=== PATIENT | female | born 1940 | race Caucasian/White ===

== ENCOUNTER 2017-01-19 14:42 | Observation (INO) | payer OTHER, MEDICARE ==
[2017-01-19 15:11] VITALS: BMI 24.7
--- NOTE | 2017-01-19 15:28 | PDOC ---
History of Present Illness - General Chief Complaint: Syncope/Near Syncope Stated Complaint: SYNCOPE History Source: Patient, Family Exam Limitations: No Limitations - History of Present Illness Initial Comments: 01/19/17 15:15 Patient is a 76F with history of HTN and hypothyroidism here today complaining of syncope. She states that she was sitting down at a restaurant when she started feeling "sleepy" then passed out. Her daughter reports that she caught her mother and that the patient was unconscious for 2-3 minutes before coming to. There was no post-ictal period according to both the patient and daughter. The daughter reports that the patient was diaphoretic when coming to. The patient denies nausea, vomiting, fevers, chills, chest pain, cough and shortness of breath. EMS reports the patient was diaphoretic at the scene. Vital signs were stable. 12 lead EKG showed normal sinus rhythm, normal rate, normal axis, no st elevations/depressions or t wave inversions. Past History - Past Medical History Allergies/Adverse Reactions: Allergies Allergy/AdvReac Type Severity Reaction Status Date / Time No Known Allergies Allergy Verified 01/19/17 15:08 Home Medications: Ambulatory Orders Atorvastatin Ca [Lipitor] 10 mg PO HS 09/27/13 Levothyroxine [Synthroid -] 125 mcg PO DAILY 09/27/13 Liothyronine Sodium [Cytomel] 5 mcg PO BID 09/27/13 Metoprolol Succinate [Toprol Xl] 25 mg PO DAILY 09/27/13 Omeprazole [Prilosec] 20 mg PO DAILY 09/27/13 Anemia: No Asthma: No Cancer: No Cardiac Disorders: No CVA: Yes ([employer]) COPD: No CHF: No Dementia: No Diabetes: No GI Disorders: Yes (GERD) Disorders: No HTN: Yes Hypercholesterolemia: Yes Liver Disease: No Seizures: No Thyroid Disease: Yes - Surgical History Abdominal Surgery: No Appendectomy: No Cardiac Surgery: No Cholecystectomy: No Lung Surgery: No Neurologic Surgery: No Orthopedic Surgery: No - Suicide/Smoking/Psychosocial Hx Smoking History: Never smoked Have you smoked in the past 12 months: No Hx Alcohol Use: No Drug/Substance Use Hx: No Substance Use Type: None Hx Substance Use Treatment: No Review of Systems - Review of Systems Comments:: 01/19/17 15:18 GENERAL/CONSTITUTIONAL: No fever or chills. No weakness. HEAD, EYES, EARS, NOSE AND THROAT: No change in vision. No sore throat. CARDIOVASCULAR: No chest pain or shortness of breath RESPIRATORY: No cough, wheezing, or hemoptysis. GASTROINTESTINAL: No nausea, vomiting, diarrhea or constipation. GENITOURINARY: No dysuria, frequency, or change in urination. MUSCULOSKELETAL: No joint or muscle swelling or pain. No neck or back pain. SKIN: No rash NEUROLOGIC: No headache, vertigo, loss of consciousness, or change in strength/ sensation. ENDOCRINE: No increased thirst. No abnormal weight change HEMATOLOGIC/LYMPHATIC: No anemia, easy bleeding, or history of blood clots. ALLERGIC/IMMUNOLOGIC: No hives or skin allergy. *Physical Exam - Vital Signs Last Vital Signs Temp Pulse Resp BP Pulse Ox 98.1 F 89 20 124/74 99 01/19/17 15:08 01/19/17 15:08 01/19/17 15:08 01/19/17 15:08 01/19/17 15:08 - Physical Exam Comments: 01/19/17 15:34 GENERAL: Awake, alert, and fully oriented, in no acute distress HEAD: No signs of trauma, normocephalic, atraumatic EYES: PERRLA, EOMI, sclera anicteric, conjunctiva clear ENT: Auricles normal inspection, hearing grossly normal, nares patent, oropharynx clear without exudates. Moist mucosa NECK: Normal ROM, supple, no lymphadenopathy, JVD, or masses LUNGS: No distress, speaks full sentences, clear to auscultation bilaterally HEART: Regular rate and rhythm, normal S1 and S2, no murmurs, rubs or gallops, peripheral pulses normal and equal bilaterally. ABDOMEN: Soft, nontender, normoactive bowel sounds. No guarding, no rebound. No masses EXTREMITIES: Normal inspection, Normal range of motion, no edema. No clubbing or cyanosis. NEUROLOGICAL: Cranial nerves II through XII grossly intact. Normal speech, no focal sensorimotor deficits SKIN: Warm, Dry, normal turgor, no rashes or lesions noted. Heart Score/ECG Review - History History: Moderately suspicious - Electrocardiogram EKG: Normal - Age Age: >/= 65 - Risk Factors Risk Factors Heart Score: Yes Hx Hypertension Based on the list above the patient has:: 1-2 risk factors - Troponin Troponin: </= normal limit - Score Heart Score - Total: 4 ED Treatment Course - LABORATORY CBC & Chemistry Diagram: 01/19/17 15:10 01/19/17 15:10 - RADIOLOGY Radiology Studies Ordered: Category Date Time Status CHEST X-RAY PORTABLE* [RAD] Stat Radiology 01/19/17 15:08 Ordered Medical Decision Making - Medical Decision Making 01/19/17 15:37 76F with history of HTN and hypothyroidism here today complaining of syncope. Vital signs stable and normal. Syncope story is concerning, as it's not a clear vasovagal pattern. Will evaluate with heart workup. EKG shows normal sinus rhythm, normal rate, normal axis, no st elevations/ depressions, no t-wave inversion, normal QTc/VT/QRS intervals. 01/19/17 17:23 Laboratory Tests 01/19/17 01/19/17 01/19/17 15:10 15:10 15:10 WBC 5.7 Hgb 15.3 Hct 45.1 Plt Count 192 D INR 1.12 Troponin I < 0.02 CBC normal, INR normal, cmp reassuring, trop negative. 01/19/17 17:24 CXR shows large hiatal hernia, no acute cardiopulmonary process. 01/19/17 18:23 Patient discussed with KRISTIE Hargrove. Admitted to [facility] for moderate risk HEART score. *DC/Admit/Observation/Transfer Diagnosis at time of Disposition: Syncope - Discharge Dispostion Condition at time of disposition: Stable Admit: Yes - Referrals Referrals: Isha Keith [Primary Care Provider] - - Patient Instructions - Post Discharge Activity
[2017-01-19 15:44] LABS: BASOPHIL 0.6 % (0-2.0); EOSINOPHIL 0.9 % (0-4.5); MCH 31.1 pg (25.7-33.7); MEAN CELL VOLUME 91.6 fl (80-96); MEAN PLT VOLUME 8.3 fl (7.5-11.1); NEUTROPHILS 62.3 % (42.8-82.8); PLATELET COUNT 192 K/MM3 (134-434); RDW 13.3 % (11.6-15.6); WHITE BLOOD COUNT 5.7 K/mm3 (4.0-10.0)
[2017-01-19 16:03] LABS: INR 1.12 (0.82-1.09); PROTHROMBIN TIME (PATIENT) 12.6 SEC (9.98-11.88)
[2017-01-19 16:04] LABS: ALBUMIN 3.8 g/dl (3.4-5.0); ANION GAP 12 (8-16); BILIRUBIN,TOTAL 0.5 mg/dL (0.2-1.0); CALCIUM 8.9 mg/dL (8.5-10.1); CO2 24 mmol/L (21-32); CREATININE 0.8 mg/dL (0.55-1.02); GLUCOSE,RANDOM 134 mg/dL (74-106); MAGNESIUM 2.3 mg/dL (1.8-2.4); SGOT/AST 20 U/L (15-37); SGPT/ALT 27 U/L (12-78); TOT PROT 6.9 g/dl (6.4-8.2)
[2017-01-19 16:07] LABS: ALK PHOS 109 U/L (45-117); CPK 55 IU/L (26-192); TROPONIN I < 0.02 ng/ml (0.00-0.05)
--- NOTE | 2017-01-19 17:22 | PDOC ---
Attending Attestation - Resident Resident Name: Nguyễn Jung - ED Attending Attestation I have performed the following: I have examined & evaluated the patient, The case was reviewed & discussed with the resident, I agree w/resident's findings & plan, Exceptions are as noted - HPI HPI: 01/19/17 17:12 76 F with h/o HTN, hypothyroid presents to ER with syncopal episode. Pt states that she was seated at a table when she felt very fatigued. She denies feeling any CP/SOB/palpitations prior to fainting. Per witnesses, pt lost consciousness for about 2 minutes before returning to baseline. SHe denies any complaints currently other than feeling fatigued. Denies recent illness. Denies CHESTER/N/V. Denies weakness/numbness/tingling in any extremity. - Physicial Exam PE: 01/19/17 17:17 "GENERAL: Awake, alert, and fully oriented, in no acute distress HEAD: No signs of trauma EYES: PERRLA, EOMI, sclera anicteric, conjunctiva clear ENT: Auricles normal inspection, hearing grossly normal, nares patent, oropharynx clear without exudates. Moist mucosa NECK: Nontender, no stepoffs, Normal ROM, supple, no lymphadenopathy, JVD, or masses LUNGS: Breath sounds equal, clear to auscultation bilaterally. No wheezes, and no crackles HEART: Regular rate and rhythm, normal S1 and S2, no murmurs, rubs or gallops ABDOMEN: Soft, nontender, normoactive bowel sounds. No guarding, no rebound. No masses EXTREMITIES: Normal range of motion, no edema. No clubbing or cyanosis. No cords, erythema, or tenderness NEUROLOGICAL: Cranial nerves II through XII intact. 5/5 strength and sensation in all extremities, Normal speech, normal gait SKIN: Warm, Dry, normal turgor, no rashes or lesions noted. " - Medical Decision Making 01/19/17 17:17 76 F with syncopal episode while sitting. Pt HD stable with normal EKG. However , given syncopal episode while sitting, cardiac syncope cannot be ruled out. Pt with no evidence of PE on exam, normal vitals. Will also evaluate for infectious process. - Labs, trop - CXR, UA - Tele monitoring
[2017-01-19 18:22] LABS: URINE APPEARANCE CLOUDY; URINE BILIRUBIN NEGATIVE (NEGATIVE); URINE BLOOD NEGATIVE (NEGATIVE); URINE COLOR AMBER; URINE GLUCOSE (UA) NEGATIVE (NEGATIVE); URINE KETONE NEGATIVE (NEGATIVE); URINE NITRITE NEGATIVE (NEGATIVE); URINE PROTEIN NEGATIVE (NEGATIVE); URINE UROBILINOGEN NEGATIVE mg/dL (0.2-1.0)
--- NOTE | 2017-01-19 18:31 | HP ---
Admitting History and Physical - Admission Chief Complaint: syncope History of Present Illness: This is a 76 year old female with HTN, HLD, exercise induced asthma, previous admission with global amnesia, hypothroidism admitted with syncope. PT states, she went on a mile hike this AM, then she went to [facility] for her . After [facility] she went to [employer] had half a glass of sangria, and was in her usual state of health. All of a sudden she felt very tired as if she was going to fall asleep and next thing she remembers is waking up with her sisters holding her head. Her sisters reported she was diaphoretic and was down for 2-3 mins. The patient recovered consciousness right away, no post ictal. Pt denies CP, SOB, abd pain, fever, chills, nausea, vomiting. - Past Medical History Cardiovascular: Yes: HTN - Smoking History Smoking history: Never smoked Have you smoked in the past 12 months: No - Alcohol/Substance Use Hx Alcohol Use: No Home Medications - Allergies Allergies/Adverse Reactions: Allergies Allergy/AdvReac Type Severity Reaction Status Date / Time No Known Allergies Allergy Verified 01/19/17 15:08 - Home Medications Home Medications: Ambulatory Orders Atorvastatin Ca [Lipitor] 10 mg PO HS 09/27/13 Levothyroxine [Synthroid -] 125 mcg PO DAILY 09/27/13 Liothyronine Sodium [Cytomel] 5 mcg PO BID 09/27/13 Metoprolol Succinate [Toprol Xl] 25 mg PO DAILY 09/27/13 Omeprazole [Prilosec] 20 mg PO DAILY 09/27/13 Review of Systems - Review of Systems Constitutional: reports: Diaphoresis Eyes: reports: No Symptoms HENT: reports: No Symptoms Neck: reports: No Symptoms Cardiovascular: reports: No Symptoms Respiratory: reports: No Symptoms Gastrointestinal: reports: No Symptoms Genitourinary: reports: No Symptoms Musculoskeletal: reports: No Symptoms Integumentary: reports: No Symptoms Neurological: reports: Change in LOC Hematology/Lymphatic: reports: No Symptoms Psychiatric: reports: No Symptoms Physical Examination Vital Signs: Vital Signs Temperature 98.1 F 01/19/17 15:08 Pulse Rate 86 01/19/17 17:29 Respiratory Rate 20 01/19/17 17:29 Blood Pressure 127/77 01/19/17 17:29 O2 Sat by Pulse Oximetry (%) 100 11/12/17 17:29 Constitutional: Yes: No Distress Eyes: Yes: Conjunctiva Clear HENT: Yes: Atraumatic Neck: Yes: Supple Cardiovascular: Yes: Regular Rate and Rhythm, S1, S2 Respiratory: Yes: Regular, CTA Bilaterally Gastrointestinal: Yes: Normal Bowel Sounds, Soft Renal/: Yes: WNL Musculoskeletal: Yes: WNL Extremities: Yes: WNL Edema: No Neurological: Yes: Alert, Oriented, Cran Nerves II-XII Intact Psychiatric: Yes: Alert, Oriented Labs: CBC, BMP 01/19/17 15:10 01/19/17 15:10 Imaging - Results EKG: Report Reviewed ( 12 lead EKG showed normal sinus rhythm, normal rate, normal axis, no st elevations/depressions or t wave inversions.) Problem List - Problems (1) HTN (hypertension) Code(s): I10 - ESSENTIAL (PRIMARY) HYPERTENSION (2) Syncope Code(s): R55 - SYNCOPE AND COLLAPSE Assessment/Plan Assessment: 76 year old female with HTN, HLD, exercise induced asthma, previous admission with global amnesia, hypothyroidism admitted with syncope. Plan: 1. Syncope - Head CT - ECHO - Carotid dopplers - Telemetry monitoring - TSH, b 12, folic acid - UA negative - Neurology consult 2. HTN - Controlled - Toprol xl 25mg daily 3. Hypothyroid - Check TSH - Synthroid 125mcg - Cytomel 5mg BID 4. HLD - Lipitor 5. DVT - Heparin sq Visit type - Emergency Visit Emergency Visit: Yes Care time: The patient presented to the Emergency Department on the above date and was hospitalized for further evaluation of their emergent condition. - New Patient This patient is new to me today: Yes Date on this admission: 01/19/17 - Critical Care Critical Care patient: No
[2017-01-19 19:36] LABS: THYROID STIMULATING HORMONE < 0.01 uIU/ml (0.358-3.74)
[2017-01-19 22:02] LABS: URINE LEUK ESTERASE Negative (NEGATIVE)
[2017-01-19] MEDS ORDERED: HEPARIN NA (PORCINE) 5,000 UNITS/ML 1ML VIAL ONE (22:29)
[2017-01-19] MEDS: ATORVASTATIN CA 10 MG TABLET (FP) PO SCH (22:42)
[2017-01-19] MEDS: LIOTHYRONINE SODIUM 5 MCG TABLET PO SCH (22:42)
[2017-01-19] MEDS: HEPARIN NA (PORCINE) 5,000 UNITS/ML 1ML VIAL SQ SCH (22:42)
[2017-01-20] MEDS ORDERED: HEPARIN NA (PORCINE) 5,000 UNITS/ML 1ML VIAL ONE (06:23)
[2017-01-20] MEDS: HEPARIN NA (PORCINE) 5,000 UNITS/ML 1ML VIAL SQ SCH ×3 (06:34→21:53)
[2017-01-20] MEDS ORDERED: LEVOTHYROXINE NA 125 MCG TABLET (FP) PO SCH ×2 (07:00→10:57)
[2017-01-20 07:27] LABS: ALBUMIN 3.2 g/dl (3.4-5.0); ANION GAP 6 (8-16); CALCIUM 8.2 mg/dL (8.5-10.1); CO2 27 mmol/L (21-32); GLUCOSE,RANDOM 91 mg/dL (74-106)
[2017-01-20 07:30] LABS: ALK PHOS 89 U/L (45-117); BILIRUBIN,TOTAL 0.6 mg/dL (0.2-1.0); CREATININE 0.6 mg/dL (0.55-1.02); SGOT/AST 15 U/L (15-37); SGPT/ALT 22 U/L (12-78); TOT PROT 5.9 g/dl (6.4-8.2)
[2017-01-20] MEDS ORDERED: LEVOTHYROXINE NA 25 MCG TABLET (FP) ONE (08:49)
[2017-01-20] MEDS: LIOTHYRONINE SODIUM 5 MCG TABLET PO SCH ×2 (10:40→21:53)
[2017-01-20] MEDS: METOPROLOL SUCCINATE 25 MG TAB.SR.24H (FP) PO SCH (10:40)
--- NOTE | 2017-01-20 11:00 | PN ---
Physical Exam: SUBJECTIVE: Patient seen and examined. No active issues, she denies palpitations , CHESTER, dizziness, she was going to leave AMA, she has decided to stay OBJECTIVE: Vital Signs Period Temp Pulse Resp BP Sys/Abarca Pulse Ox Last 24 Hr 97.6 F-98.1 F 70-89 16-20 116-136/60-89 97-100 PE Neuro: alert, awake, cn 2-12intact Pulm: CTAB CV: s1 s2 rrr no mrg Abd: s nt nd + bs Ext: Warm, no le edema Laboratory Results - last 24 hr 01/19/17 01/19/17 01/20/17 15:15 17:50 06:10 WBC RBC Hgb Hct MCV MCH MCHC RDW Plt Count MPV Neutrophils % Lymphocytes % Monocytes % Eosinophils % Basophils % PT with INR INR Sodium 142 Potassium 3.7 Chloride 109 H Carbon Dioxide 27 Anion Gap 6 L BUN 18 Creatinine 0.6 D Creat Clearance w eGFR > 60 Random Glucose 91 D Calcium 8.2 L Magnesium Total Bilirubin 0.6 AST 15 D ALT 22 Alkaline Phosphatase 89 Creatine Kinase Troponin I Total Protein 5.9 L Albumin 3.2 L Vitamin B12 4013 H Serum Folate 91 H TSH < 0.01 L Urine Color Macy Urine Appearance Cloudy Urine pH 5.0 Ur Specific [place] 1.027 Urine Protein Negative Urine Glucose (UA) Negative Urine Ketones Negative Urine Blood Negative Urine Nitrite Negative Urine Bilirubin Negative Urine Urobilinogen Negative Ur Leukocyte Esterase Negative Active Medications Generic Name Dose Route Start Last Admin Trade Name Freq PRN Reason Stop Dose Admin Atorvastatin Calcium 10 mg 01/19/17 22:00 01/19/17 22:42 Lipitor - PO 10 mg HS FEMI Administration Heparin Sodium (Porcine) 5,000 unit 01/19/17 22:00 01/20/17 06:34 Heparin - SQ 5,000 unit TID FEMI Administration Levothyroxine Sodium 112.5 mcg 01/20/17 10:57 Synthroid - PO DAILY@0700 FEMI Liothyronine Sodium 5 mcg 01/19/17 22:00 01/20/17 10:40 Cytomel - PO Not Given BID FEMI Metoprolol Succinate 25 mg 01/20/17 10:00 01/20/17 10:40 Toprol Xl - PO Not Given DAILY FEMI Imaging: - Head CT negative - Carotid dopplers: no stenosis Assessment: 76 year old female with HTN, HLD, exercise induced asthma, previous admission with global amnesia, hypothyroidism admitted with syncope. Plan: 1. Syncope, hx of TGA - Likely due to over treated hypothyriod (TSH severely low) vs cardiogenic syncope - ECHO done report pending - Place holter monitor - Cardiology consulted, pt PCP/Executor Of Estate Dr. Keith, states cardiac cath 2009 negative, recent physical 12/10/16 wnl 2. HTN - Controlled - Toprol xl 25mg daily 3. Hypothyroid - TSH <0.01 - Decrease synthroid 112.5mcg - D/w PCP Dr. Keith, will follow up cytomel - Change Cytomel 5mg daily, pt does not take BID 4. HLD - Lipitor 5. DVT - Heparin sq Problem List - Problems (1) HTN (hypertension) Code(s): I10 - ESSENTIAL (PRIMARY) HYPERTENSION (2) Syncope Code(s): R55 - SYNCOPE AND COLLAPSE Visit type - Emergency Visit Emergency Visit: Yes ED Registration Date: 01/19/17 Care time: The patient presented to the Emergency Department on the above date and was hospitalized for further evaluation of their emergent condition. - New Patient This patient is new to me today: No - Critical Care Critical Care patient: No
--- NOTE | 2017-01-20 17:33 | EKG ---
Test Reason : Blood Pressure : / mmHG Vent. Rate : 084 BPM Atrial Rate : 084 BPM P-R Int : 148 ms QRS Dur : 092 ms QT Int : 388 ms P-R-T Axes : 012 -02 -10 degrees QTc Int : 458 ms NORMAL SINUS RHYTHM NORMAL ECG WHEN COMPARED WITH ECG OF 27-SEP-2013 16:00, NO SIGNIFICANT CHANGE WAS FOUND Confirmed by SLY CHINCHILLA MD ([id number]) on 01/20/2017 5:32:37 PM Referred By: Confirmed By:SLY CHINCHILLA MD
--- NOTE | 2017-01-20 18:22 | CON.CARD ---
Consult Consult Specialty:: Cardiology Referred by:: Hospitalist Reason for Consultation:: Cardiac evaluation - History of Present Illness Chief Complaint: Syncope History of Present Illness: Patient is a 76 year old female with underlying history of hypertension, bronchial asthma, hypercholesterolemia, global amnesia and hypothyroidism who presented to ED after a syncopal episode. She was previously seem by me for cardiac evaluation but since then she has been followed by her PCP who happens to be practicing cardiology as well. She attended a memorial service for her and was having lunch a a local restaurant when she had a syncopal episode. She drank half of sangria and had a little cough prior to the event. She denies chest pain, shortness of breath or palpitations. She denies paroxysmal nocturnal dyspnea or orthopnea. She denies fever or chills. She denies headache or lightheadedness. She reports no focal neurologic deficits. Cardiology consultation was called for further evaluation. - History Source History Provided By: Patient, Medical Record Limitations to Obtaining History: No Limitations - Past Medical History [employer]IST: Yes: Other (Global amnesia) Cardio/Vascular: Yes: HTN, Hyperlipdemia Pulmonary: Yes: Asthma Endocrine: Yes: Hypothyroidism (Post thyroidectomy) - Past Surgical History Additional Surgical History: Thyroidectomy - Alcohol/Substance Use Hx Alcohol Use: Yes (Social) History of Substance Use: reports: None - Smoking History Smoking history: Never smoked Have you smoked in the past 12 months: No Home Medications - Allergies Allergies/Adverse Reactions: Allergies Allergy/AdvReac Type Severity Reaction Status Date / Time No Known Allergies Allergy Verified 01/19/17 15:08 - Home Medications Home Medications: Ambulatory Orders RX: Atorvastatin Ca [Lipitor] 10 mg PO HS 09/27/13 RX: Levothyroxine [Synthroid -] 125 mcg PO DAILY 09/27/13 RX: Liothyronine Sodium [Cytomel] 5 mcg PO DAILY 09/27/13 RX: Metoprolol Succinate [Toprol Xl] 25 mg PO DAILY 09/27/13 RX: Omeprazole [Prilosec] 20 mg PO DAILY 09/27/13 Family Disease History - Family Disease History Other Family History: History of vasovagal syncope (Mother) Review of Systems - Review of Systems Constitutional: denies: Chills, Fever Cardiovascular: denies: Chest Pain, Palpitations, Shortness of Breath Respiratory: reports: Cough. denies: Hemoptysis, Orthopnea, PND, SOB, SOB on Exertion Gastrointestinal: denies: Abdominal Pain, Constipation, Diarrhea, Melena, Nausea , Rectal Bleeding, Vomiting Genitourinary: denies: Dysuria Musculoskeletal: denies: Back Pain, Joint Pain Neurological: reports: Syncope. denies: Dizziness, Headache, Numbness, Seizure , Unsteady Gait, Weakness Vital Signs: Vital Signs Temperature 98.4 F 01/20/17 16:30 Pulse Rate 71 01/20/17 16:30 Respiratory Rate 18 01/20/17 16:30 Blood Pressure 144/86 01/20/17 16:30 O2 Sat by Pulse Oximetry (%) 98 01/20/17 16:30 Neck: Yes: Supple Respiratory: Yes: CTA Bilaterally Gastrointestinal: Yes: Normal Bowel Sounds, Soft. No: Tenderness Cardiovascular: Yes: Regular Rate and Rhythm JVD: No Carotid Bruit: No PMI: Non-Displaced Heart Sounds: Yes: S1, S2 Edema: No - Other Data Labs, Other Data: CBC, BMP 01/19/17 15:10 01/20/17 06:10 INR, PTT INR 1.12 (0.82-1.09) 01/19/17 15:10 Laboratory Results - last 24 hr 01/20/17 06:10 Sodium 142 Potassium 3.7 Chloride 109 H Carbon Dioxide 27 Anion Gap 6 L BUN 18 Creatinine 0.6 D Creat Clearance w eGFR > 60 Random Glucose 91 D Calcium 8.2 L Total Bilirubin 0.6 AST 15 D ALT 22 Alkaline Phosphatase 89 Total Protein 5.9 L Albumin 3.2 L Sin[address] rhythm no ST-T abnormality Echo: Pending Problem List - Problems (1) Hypercholesterolemia Code(s): E78.00 - PURE HYPERCHOLESTEROLEMIA, UNSPECIFIED (2) Bronchial asthma Code(s): J45.909 - UNSPECIFIED ASTHMA, UNCOMPLICATED (3) Hypothyroidism Code(s): E03.9 - HYPOTHYROIDISM, UNSPECIFIED (4) HTN (hypertension) Code(s): I10 - ESSENTIAL (PRIMARY) HYPERTENSION Qualifiers: Hypertension type: essential hypertension Qualified Code(s): I10 - Essential (primary) hypertension (5) Syncope Code(s): R55 - SYNCOPE AND COLLAPSE Qualifiers: Syncope type: vasovagal syncope Qualified Code(s): R55 - Syncope and collapse (6) Transient global amnesia Code(s): G45.4 - TRANSIENT GLOBAL AMNESIA Assessment/Plan 1. Syncope, vasovagal, dehydration 2. HTN 3. History of global amnesia 4. Hypercholesterolemia 5. Hypothyroidism 6. Bronchial asthma PLAN: 1. Currently on Holter monitor. Admit to telemetry 2. Transthoracic echocardiography to assess LV/RV and valvular function 3. Continue Metoprolol as tolerated 4. Continue Synthroid at appropriate dose determined by TFT 5. Continue statin Further plans are to follow Moo Philippe MD
--- NOTE | 2017-01-20 19:44 | CONSULT ---
Consultation: REQUESTING PROVIDER: CONSULT SERVICE: Cardiology CONSULT REQUEST: We have been asked to medically evaluate this patient for syncope. HISTORY OF PRESENT ILLNESS: 76 yo female w/ pmh of HTN, HLD, asthma, global amnesia and hypothyroidism who presents after witnessed syncopal episode yesterday during lunch with her sisters. Pt lives at home, fully functional in all ADLs, with unlimited ambulatory capacity. Pt was in her usual state of health while attending a memorial service for her yesterday and following the service went to eat at a restaurant w/ her sisters. After consuming half a sangria, she endorses the onset of fatigue and states she experienced a coughing fit before losing consciousness. Pts sisters were able to catch her and she experienced no significant physical trauma from the event. Per her sister, pt was unconscious for 2-3 minutes, notably diaphoretic, with no myoclonus. She was fully alert upon regaining consciousness w/ no post-ictal symptoms. Prior to LOC, pt denies any CP, palpitations, vertigo, dizziness, lightheadness, nausea, peripheral weakness, myoclonus or aura. She endorses poor PO hydration that morning and states she had been emotional from the memorial service for her . She denies any CHESTER/dizziness, fever, chills, cough, CP, SOB, palpitations, N/V, dysuria, diarrhea, peripheral weakness, or focal neurologic deficits. Pt has a prior pmh significant for two episodes of transient global amnesia, the first occurring in Apr 2009, for which she received a full cardiac work-up. However, she denies any hx of cardiac or neurological dz. Family hx significant for mother w/ vasovagal syncope. Her PCP/visiting nurse is Dr. Keith at [facility]. PMH: Global Amnesia HTN HLD Hypothyroidism - Takes synthroid. Recently increased from 100 to 125 mcg Exercise-induced asthma Hiatal Hernia - Currently taking PPI PSH: Thyroidectomy RHC/LHC? 2010 Allergies: NKDA Social Hx: . Lives at home. Independent in all ADLs. Social drinke Fam Hx: Notable for mother w/ vasovagal syncope REVIEW OF SYSTEMS: CONSTITUTIONAL: Diaphoresis Absent: fever, chills, generalized weakness HEENT: Absent: rhinorrhea, nasal congestion, throat pain, visual changes CARDIOVASCULAR: syncope Absent: chest pain, palpitations, irregular heart rate, lightheadedness, peripheral edema RESPIRATORY: cough Absent: shortness of breath, dyspnea with exertion, orthopnea, hemoptysis GASTROINTESTINAL: Absent: abdominal pain, abdominal distension, nausea, vomiting, diarrhea, constipation, melena, hematochezia GENITOURINARY: Absent: dysuria, frequency, urgency SKIN: Absent: rash, itching ENDOCRINE: Absent: unexplained weight gain, unexplained weight loss, heat intolerance, cold intolerance NEUROLOGIC: Absent: headache, focal weakness or paresthesias, dizziness, unsteady gait, seizure, mental status changes, bladder or bowel incontinence PSYCHIATRIC: Absent: anxiety, depression PHYSICAL EXAMINATION Vital Signs - 24 hr 01/19/17 01/19/17 01/20/17 20:45 23:48 06:33 Temperature 97.6 F Pulse Rate Pulse Rate [ Apical] Pulse Rate [ 78 76 72 Radial] Respiratory 20 16 18 Rate Blood Pressure Blood Pressure 117/78 116/60 135/89 [Right Arm] O2 Sat by Pulse 97 99 99 Oximetry (%) 01/20/17 01/20/17 01/20/17 08:45 10:45 14:57 Temperature 98.0 F 98.7 F Pulse Rate 61 Pulse Rate [ 70 68 Apical] Pulse Rate [ Radial] Respiratory 18 18 18 Rate Blood Pressure 145/78 Blood Pressure 136/74 128/76 [Right Arm] O2 Sat by Pulse 99 95 99 Oximetry (%) 01/20/17 16:30 Temperature 98.4 F Pulse Rate 71 Pulse Rate [ Apical] Pulse Rate [ Radial] Respiratory 18 Rate Blood Pressure 144/86 Blood Pressure [Right Arm] O2 Sat by Pulse 98 Oximetry (%) GENERAL: Awake, alert, and fully oriented, in no acute distress. HEAD: Normal with no signs of trauma. NCAT EYES: Pupils equal, round and reactive to light, extraocular movements intact, sclera anicteric, conjunctiva clear. No lid lag. EARS, NOSE, THROAT: Ears normal, nares patent, oropharynx clear without exudates. Moist mucous membranes. NECK: Normal range of motion, supple without lymphadenopathy, JVD, or masses. Carotid upstroke noted BL. LUNGS: Breath sounds equal, clear to auscultation bilaterally. No wheezes, and no crackles. No accessory muscle use. Sebaceous cyst noted on back, located midline/upper third HEART: Regular rate and rhythm, normal S1 and S2 without murmur, rub or gallop. ABDOMEN: Soft, nontender, not distended, normoactive bowel sounds, no guarding, no rebound, no masses. No hepatomegaly or splenomegaly. No bruit noted. UPPER EXTREMITIES: 2+ pulses, warm, well-perfused. No cyanosis. No clubbing. Cap refill <2 seconds. No peripheral edema. LOWER EXTREMITIES: 2+ pulses, warm, well-perfused. No calf tenderness. No peripheral edema. NEUROLOGICAL: Cranial nerves II-XII intact. Normal speech. Normal gait. 5/5 strength in all extremities/muscle groups. No sensory deficits. PSYCHIATRIC: Cooperative. Good eye contact. Appropriate mood and affect. SKIN: Warm, dry, normal turgor, no rashes or lesions noted. Laboratory Results - last 24 hr 01/19/17 01/19/17 01/20/17 15:15 17:50 06:10 Sodium 142 Potassium 3.7 Chloride 109 H Carbon Dioxide 27 Anion Gap 6 L BUN 18 Creatinine 0.6 D Creat Clearance w eGFR > 60 Random Glucose 91 D Calcium 8.2 L Total Bilirubin 0.6 AST 15 D ALT 22 Alkaline Phosphatase 89 Total Protein 5.9 L Albumin 3.2 L Vitamin B12 4013 H Serum Folate 91 H TSH < 0.01 L Ur Leukocyte Esterase Negative Active Medications Generic Name Dose Route Start Last Admin Trade Name Freq PRN Reason Stop Dose Admin Atorvastatin Calcium 10 mg 01/19/17 22:00 01/19/17 22:42 Lipitor - PO 10 mg HS FEMI Administration Heparin Sodium (Porcine) 5,000 unit 01/19/17 22:00 01/20/17 15:44 Heparin - SQ 5,000 unit TID FEMI Administration Levothyroxine Sodium 112.5 mcg 01/20/17 10:57 Synthroid - PO DAILY@0700 [facility] Liothyronine Sodium 5 mcg 01/19/17 22:00 01/20/17 10:40 Cytomel - PO Not Given BID [facility] Metoprolol Succinate 25 mg 01/20/17 10:00 01/20/17 10:40 Toprol Xl - PO Not Given DAILY [facility] EKG 01/19: NSR. Rate ~80. No QT prolongation. No evidence of acute ischemia or infarct. No BBB or heart block. No T wave abnormalities. CXR 01/19: No evidence of airspace consolidation or pleural effusion. Mild bibasilar linear scarring versus atelectasis. Large hiatal hernia. Carotid Doppler (01/19): IMPRESSION: Normal carotid sonogram with no evidence of hemodynamically significant stenoses. ECHO 01/20: Normal LV size and function. EF of 69%. Moderate MR, TR. Mild pulmonic regurgitation. No pericardial effusion. ASSESSMENT/PLAN: Assessment: 76 yo female w/ pmh of HTN, HLD, asthma, global amnesia and hypothyroidism who presents after witnessed syncopal episode yesterday during lunch with her sisters. Pt has since been asymptomatic and denies any cardiac or neurologic symptoms. Physical exam unremarkable. Labs notable for markedly low TSH (0.01>) , normal cardiac enzymes. Unremarkable EKG, CXR, carotid doppler. ECHO notable for grossly normal LV function, moderate MR/TR. Given clinical picture, pt likely suffering from vasovagal syncope in setting of paroxysmal coughing fit, likely precipitated by dehydration/emotional stress/possible excessive dosing of home synthroid. Recommend continued holter monitoring to r/o possible arrhythmia, however less likely to be cardiogenic given clinical hx and imaging findings. Plan: Problem list Syncopal episode HTN HLD 1. 48-hour holter monitoring for possible arrhythmias/cardiac events. 2. Continue home metoprolol at 25mg daily for HTN. Continue atorvastatin 10 mg PO HS. 3. Decrease synthroid to 100 mcg. Recheck TSH. F/u w/ outpt hand almond blancher for further dosage adjustments. 4. IVFs. Monitor volume status. 5. F/u neurology consult 6. Consider psych consult for possible psychiatric component 7. Orthostatics 8. May require cardiac cath for further cardiac work-up Will discuss plan with attending, Dr. Denae Park, PGY1 Dispo: We will continue to follow the patient. Thank you for this consultative opportunity. Visit type - Emergency Visit Emergency Visit: Yes ED Registration Date: 01/19/17 Care time: The patient presented to the Emergency Department on the above date and was hospitalized for further evaluation of their emergent condition. - New Patient This patient is new to me today: Yes Date on this admission: 01/20/17 - Critical Care Critical Care patient: No
--- NOTE | 2017-01-20 20:49 | CONSULT ---
Consult - text type - Consultation Consultation Note: NEUROLOGY CONSULTATION is greatly appreciated: This 76 yo RH woman with H/O Hypothyroidism, hypertension, Chol. is maintained on Synthroid, Cytomel, atdorvastatin, metoprolol and omeprazole. Known to me from prior presentation with transient memory loss c/w Transient Global Amnesia (TGA) about 4 years ago. Yesterday she had lunch with her family and had a Sangria. She then felt fatigued, weak, dizzy and passed out on the table. She came to within 2-3 minutes and was rapidly reoriented. Family noted diaphoresis. In ER, CT of head (reviewed): Mild age-related atrophy Carotid duplex dopplers: Normal Dr. Philippe's cardiology consultation is read and appreciated. TSH <0.01 JANEL: No head trauma. No bruits. Cor: Reg. NEURO: MS/speech: Normal CN II-XII: Normal Motor: No drift or tremor. Normal strength, tone, bulk and reflexes. Toes are downgoing Coord: No FTN Dystaxia Sensory: Normal Gait: Normal IMP: Normal Neurological exam. Syncope. Vasovagal vs. Cardiogenic. SUGGEST: Telemetry and/or Halter monitor Check orthostatic BP's. Endocrinology consultation. Neuro f/u and EEG as out patient. Thank you very much, Lionel Hood MD
[2017-01-20] MEDS: ATORVASTATIN CA 10 MG TABLET (FP) PO SCH (21:57)
[2017-01-21] MEDS: HEPARIN NA (PORCINE) 5,000 UNITS/ML 1ML VIAL SQ SCH (06:34)
--- NOTE | 2017-01-21 07:57 | PN ---
Progress Note (short form) - Note Progress Note: Chief Complaint: Events noted, notes reviewed, denies any chest pain or dyspnea , no dizziness History of Present Illness: Seen and examined on telemetry. Events noted, notes reviewed, denies any chest pain or dyspnea, no dizziness Echocardiography revealed normal LV size and function, mild to moderate MR, mild TR Carotid Doppler study normal Medications: Current Medications Atorvastatin Calcium (Lipitor -) 10 mg PO HS [facility] Last Admin: 01/20/17 21:57 Dose: Not Given Heparin Sodium (Porcine) (Heparin -) 5,000 unit SQ TID [facility] Last Admin: 01/21/17 06:34 Dose: 5,000 unit Levothyroxine Sodium (Synthroid -) 112.5 mcg PO DAILY@0700 [facility] Last Admin: 01/21/17 06:34 Dose: 112.5 mcg Liothyronine Sodium (Cytomel -) 5 mcg PO BID [facility] Last Admin: 01/20/17 21:53 Dose: 5 mcg Metoprolol Succinate (Toprol Xl -) 25 mg PO DAILY [facility] Last Admin: 01/20/17 10:40 Dose: Not Given Review of Systems - Review of Systems Constitutional: denies: Chills, Fever Cardiovascular: As noted above Respiratory: denies: Cough or Sputum Production Gastrointestinal: denies: Nausea, Vomiting, Diarrhea, Constipation or Abdominal Discomfort Neurological: No Symptoms Reported Vital Signs: Last Vital Signs Temp Pulse Resp BP Pulse Ox 98.2 F 64 20 113/53 96 01/21/17 06:08 01/21/17 06:08 01/21/17 06:08 01/21/17 06:08 01/21/17 00:00 Intake & Output 01/18/17 01/19/17 01/20/17 01/21/17 23:59 23:59 23:59 23:59 Intake Total 240 Balance 240 Weight 129 lb 129 lb Neck: Supple Negative JVD No Bruit Respiratory: Clear to A&P Bilaterally Cardiovascular: S1 S2 Regular Rate and Rhythm No Murmurs Clicks or Gallops Gastrointestinal: Soft Benign Normal Bowel Sounds Ext: No Edema Labs: CBC, BMP 01/19/17 15:10 01/20/17 06:10 INR, PTT INR 1.12 (0.82-1.09) 01/19/17 15:10 Assessment/Plan ASSESSMENT: 1. Syncope, probably vaso-vagal precipitated by dehydration, cannot exclude neuro-cardiogenic syncope, vaso-depressor/cardio-inhibitory 2. HTN 3. Hypercholesterolemia 4. History of transient global amnesia 5. Hypothyroidism 6. Bronchial asthma PLAN: 1. Long discussion with the patient regarding her presentation which as outlined above is most likely vaso-vagal in origin, if recurrent symptoms additional evaluation is recommended including Tilt table testing and possible extended monitoring 2. Continue Toprol XL 3. Continue Lipitor 4. Continue ASA 5. 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 Marc Khan M.D.
--- NOTE | 2017-01-21 09:19 | DS ---
Physical Exam: SUBJECTIVE: Patient seen and examined. She feels well, no further syncopal episodes, dizziness, CHESTER. OBJECTIVE: Vital Signs Period Temp Pulse Resp BP Sys/Abarca Pulse Ox Last 24 Hr 98.2 F-98.7 F 61-71 18-20 113-145/53-86 95-99 PE Neuro: alert, awake, cn 2-12intact Pulm: CTAB CV: s1 s2 rrr no mrg Abd: s nt nd + bs Ext: Warm, no le edema HOSPITAL COURSE: Date of Admission:01/19/17 Date of Discharge: 01/21/17 Minutes to complete discharge: 37 Discharge Summary Reason For Visit: SYNCOPE Current Active Problems Bronchial asthma (Acute) HTN (hypertension) (Acute) Hypercholesterolemia (Acute) Hypothyroidism (Acute) Syncope (Acute) Hospital Course: Initial Hospital Course: Briefly, this 76 year old female with HTN, HLD, exercise induced asthma, previous admission with global amnesia, hypothroidism admitted with syncope. She went on a mile hike this AM, then she went to [employer] for her anniversary 7 years passed. After [facility] she went to [employer] had half a glass of sangria, and was in her usual state of health. All of a sudden she felt very tired as if she was going to fall asleep and next thing she remembers is waking up with her sisters holding her head. Her sisters reported she was diaphoretic and was down for 2-3 mins. The patient recovered consciousness right away, no post ictal. Pt denies CP, SOB, abd pain, fever, chills, nausea, vomiting. Imaging: - Head CT negative - Carotid dopplers: no stenosis Subsequent Hospital Course/Progress Note/DC summary: Assessment: 76 year old female with HTN, HLD, exercise induced asthma, previous admission with global amnesia, hypothyroidism admitted with syncope. Plan: 1. Syncope, hx of TGA - Likely due to over treated hypothyriod (TSH severely low) vs vaso-vagal vs neuro cardiogenic - Echo: normal LV size and function, mild to moderate MR, mild TR - Holter monitor no acute arrhythmias - If symptoms persist in future will need tilt table/extended monitor, pt aware - F/u PCP/Position Classification Manager Dr. Keith 2. HTN - Controlled - ASA daily - Toprol xl 25mg daily 3. Hypothyroid - TSH <0.01 - Decrease synthroid 112 mcg - Change Cytomel 5mg daily, d/w PCP, to adjust dose based on levels 4. HLD - Lipitor Dispo: - Home with PCP follow up and listed meds above Condition: Stable - Instructions Diet, Activity, Other Instructions: Please return to the ED for any new, persistent, or worsening symptoms. Follow up with your PCP in 1 week Note decreased dose in Synthroid, now 112.5mcg, followup with Dr. Keith for repeat levels and further recommendation for cytomel, she is aware Take medications as directed on home discharge medication list If symptoms persist consider tilt table test or extended monitoring wit Dr. Keith Referrals: Isha Keith [Primary Care Provider] - Disposition: HOME - Home Medications Comprehensive Discharge Medication List: Ambulatory Orders Atorvastatin Ca [Lipitor] 10 mg PO HS 09/27/13 Liothyronine Sodium [Cytomel] 5 mcg PO DAILY 09/27/13 Metoprolol Succinate [Toprol Xl] 25 mg PO DAILY 09/27/13 Omeprazole [Prilosec] 20 mg PO DAILY 09/27/13 Aspirin [ASA -] 81 mg PO DAILY #30 tab.chew 01/21/17 Levothyroxine [Synthroid -] 112.5 mcg PO DAILY@0700 #30 tablet 01/21/17 Problem List - Problems (1) HTN (hypertension) Code(s): I10 - ESSENTIAL (PRIMARY) HYPERTENSION Qualifiers: Hypertension type: essential hypertension Qualified Code(s): I10 - Essential (primary) hypertension (2) Syncope Code(s): R55 - SYNCOPE AND COLLAPSE Qualifiers: Syncope type: vasovagal syncope Qualified Code(s): R55 - Syncope and collapse This patient is new to me today: No Emergency Visit: Yes ED Registration Date: 01/19/17 Care time: The patient presented to the Emergency Department on the above date and was hospitalized for further evaluation of their emergent condition. Critical Care patient: No - Discharge Referral Referred to [facility] No
[2017-01-21] MEDS: METOPROLOL SUCCINATE 25 MG TAB.SR.24H (FP) PO SCH (09:44)
[2017-01-21 10:17] VITALS: BP 132/53; PULSE 60; TEMP 98.3
[2017-01-21] MEDS ORDERED: LIOTHYRONINE SODIUM 5 MCG TABLET PO SCH (22:00)
--- NOTE | 2017-01-22 09:12 | HOL ---
Hook-up date: 2017-01-20 13:34:00 Duration: 21:26:00 Test Indications: CARDIOGENIC SYNCOPE Medications: 73450 QRS complexes 79 Ventricular ectopics which represent <1 % of total QRS comp. 54 Supraventricular ectopics which represent <1 % of total QRS comp. * Paced QRS complexs which represent % of total QRS comp. * % of Time Classified as Noise VENTRICULAR ECTOPY 77 Isolated 15 Bigeminal Cycles 1 Couplets 0 Runs 0 Beats in Runs * Beats LONGEST at * BPM at :: -- * Beats FASTEST at * BPM at :: -- SUPRAVENTRICULAR ECTOPY 43 Isolated 3 Couplets 1 Runs 5 Beats in Runs 5 Beats LONGEST at 142 BPM at 16:30:01 2017-01-20 5 Beats FASTEST at 142 BPM at 16:30:01 2017-01-20 HEART RATES 47 MIN at 06:40:05 2017-01-21 68 AVG 98 MAX at 19:15:35 2017-01-20 LONGEST RR 1.568 secs at 06:42:44 2017-01-21 SCANNED BY: EFRAIN 01/21/17 1. Basic rhythm was sinus with an average daily heart rate of 68 BPM. Rhythm was interrupted by sinus bradycardia. Rates varied from 47 to 98 BPM. 2. Rare single VPB's, rarely successive. mostly unifocal. 3. Rare SPB's at times successive and short run of SVT consisting of 5 beats in a row at 16:[address]-T waves did not reveal any significant variations. 5 No diary was submitted. Confirmed by SHEIKH SARAH, VENKAT ([id number]), health editor SAMUEL RAGSDALE (1) on 01/22/2017 9:12:13 AM Referred By: Trevon LUNA Overread By: VENKAT VERMA MD
== END 2017-01-21 11:34 | disposition home or self-care (01) ==
LOC: JER 14:42 → JERBED 18:14 → J4W 01-20 16:21
PROVIDERS: ADMIT Internal Medicine; ATTEND Nurse Practitioner Acute Care
PROC: 3E013GC Introduction of Other Therapeutic Substance into Subcutaneous Tissue, Percutaneous Approach (ICD-10-PCS; principal; 2017-01-19)
DX: R55 Syncope and collapse (principal); I10 Essential (primary) hypertension; E78.5 Hyperlipidemia, unspecified; E89.0 Postprocedural hypothyroidism; K21.9 Gastro-esophageal reflux disease without esophagitis; J45.909 Unspecified asthma, uncomplicated; G45.4 Transient global amnesia
CPT/HCPCS: 36415; 70450-TC; 71010-TC; 80053; 81003; 82550; 82607; 82746; 83735; 84443; 84484; 85025; 85610; 87086; 93005; 93010; 93225; 93226; 93306-TC; 93880-TC; 96372; 99285-25; G0378; J1644

== ENCOUNTER 2018-02-12 07:00 | Day surgery (SDC) | payer OTHER, MEDICARE ==
[2018-02-10 18:55] VITALS: BMI 24.3
--- NOTE | 2018-02-11 16:05 | HP ---
- Patient Scheduled date of Surgery: 02/12/18 Scheduled Surgical Procedure: Phacoemulsification and cataract extraction with PCIOL Affected Eye: Right Chief Complaint (Indication for surgery): Decreased vision affecting ADLs, Glare when driving at night - Ocular History Other Eye History: Other (ROCHELLE, Choroidal nevus, PVD OD) Eye Medications: Vigamox , AT Previous Eye Surgery: none - Medical History Illnesses: Hypertension, Hypercholesterolemia, Thyroid Disease Current Medications: Ambulatory Orders Atorvastatin Ca [Lipitor] 10 mg PO ASDIR 09/27/13 Liothyronine Sodium [Cytomel] 5 mcg PO DAILY 09/27/13 Metoprolol Succinate [Toprol Xl] 25 mg PO DAILY 09/27/13 Omeprazole [Prilosec] 20 mg PO DAILY 09/27/13 Aspirin [ASA -] 81 mg PO DAILY #30 tab.chew 01/21/17 Levothyroxine [Synthroid -] 112 mcg PO DAILY #30 tablet 01/21/17 Ascorbic Acid [Vitamin C] 1,000 mg PO DAILY 02/10/18 Calcium Carb/D3/Magnesium/Zinc [Lev Mag Zinc + D Tablet] 1 each PO DAILY Cholecalciferol (Vitamin D3) [Vitamin D3 -] 2,000 unit PO DAILY 02/10/18 Folic Acid 1 mg PO DAILY 02/10/18 Glucosamine Sulfate Dipot Chlr [Glucosamine] 1,500 mg PO DAILY 02/10/18 Iron 65 mg PO DAILY 02/10/18 Lutein 2 mg PO DAILY 02/10/18 Mv-Min/FA/Vit K/Lycop/Lut/Zeax [Ocuvite Eye + Multi Tablet] 1 each PO DAILY 06/25 Ubidecarenone/Vit E Acet [Co Q-10 100 mg Softgel] 1 each PO DAILY 02/10/18 Vitamin B Complex/Folic Acid [Vitamin B-100 Complex Tablet] 0.4 mg PO DAILY 06/25 Allergies/Adverse Reactions: Allergies Allergy/AdvReac Type Severity Reaction Status Date / Time No Known Allergies Allergy Verified 01/19/17 15:08 Ocular Examination - Best Corrected Visual Acuity Distance: Right eye: 20/60- Distance: Left eye: 20/30 - External/Slit Lamp Examination Abnormalities: loss of pupillary ruff - Intraocular Pressure Intraocular Pressure - Right eye: 12 Intraocular Pressure-Left eye: 12 - Lens Lens: 2+ NS 2+ cortical 2+ psc - Vitreous/Retina Vitreous/Retina: C:D 0.2 , faint choroidal nevus 1/2 dd, p/v wnl - Special Examination M - Right eye: -2.25- 1.00 x 085 M - Left eye: -2.00 K - Right eye: 46/47 x 090 K - Left eye: 46.25/47.25 x 095 AL - Right eye: 23.86 AL - Left eye: 23.56 IOL bag: +19.0 AUOOTO for myopia IOL sulcus: +18.0 AUOOTO IOL AC: +16.0 MTA4uo - Impression Impression: Cataract Right Eye - Plan Plan: Phacoemulsification and cataract extraction - IOL Right eye Post-hospital care will be provided in office on: 02/13/18
[~2018-02-12 07:00] MED LIST: CIPROFLOXACIN HCL 0.3% OPHTH 2.5ML BOTTLE OP SCH; KETOROLAC TROMETHAMINE 0.5% EYE DROP 1 DROP DROPS OP SCH; PHENYLEPHRINE 2.5% OPHTH SOLN 15 ML BOTTLE OP SCH; TOBRAMYCIN/DEXAMETHASONE OPHTH. OINTMENT 1 TUBE TP ONE; TROPICAMIDE 1% OPHTH SOLN 15 ML BOTTLE OP SCH
[2018-02-12] MEDS ORDERED: TOBRAMYCIN/DEXAMETHASONE OPHTH. OINTMENT 1 TUBE ONE (07:13)
[2018-02-12] MEDS ORDERED: LIDOCAINE HCL 2% JELLY (5 ML/TUBE) ONE (07:13)
[2018-02-12] MEDS ORDERED: CHONDROITIN SU A/HYALUR SOD 1 KIT ONE (07:13)
[2018-02-12] MEDS ORDERED: PHENYLEPHRINE 2.5% OPHTH SOLN 15 ML BOTTLE ONE (07:16)
[2018-02-12] MEDS ORDERED: TROPICAMIDE 1% OPHTH SOLN 15 ML BOTTLE ONE (07:16)
[2018-02-12] MEDS ORDERED: KETOROLAC TROMETHAMINE 0.5% EYE DROP 1 DROP DROPS ONE (07:16)
[2018-02-12] MEDS ORDERED: CIPROFLOXACIN HCL 0.3% OPHTH 2.5ML BOTTLE ONE (07:16)
[2018-02-12] MEDS ORDERED: EPINEPHrine/PF 1 MG/1 ML (1:1,000) AMPULE ONE (07:20)
[2018-02-12] MEDS ORDERED: LIDOCAINE HCL/PF 1% SDV 5ML VIAL ONE (07:20)
[2018-02-12] MEDS ORDERED: BSS (NA/CA/MG/K) BALANCED SALT SOLUTION OPHTH SOLN 15 ML BOTTLE ONE (07:21)
[2018-02-12] MEDS ORDERED: POVIDONE-IODINE 5% OPHTHALMIC PREP 30 ML SOLUTION ONE (07:21)
[2018-02-12] MEDS ORDERED: KETOROLAC TROMETHAMINE 0.5% EYE DROP 1 DROP DROPS OD ONE ×3 (07:40→08:00)
[2018-02-12] MEDS ORDERED: PHENYLEPHRINE 2.5% OPHTH SOLN 15 ML BOTTLE OD ONE ×3 (07:40→08:00)
[2018-02-12] MEDS ORDERED: CIPROFLOXACIN HCL 0.3% OPHTH 2.5ML BOTTLE OD ONE ×3 (07:40→08:00)
[2018-02-12] MEDS ORDERED: TROPICAMIDE 1% OPHTH SOLN 15 ML BOTTLE OD ONE ×3 (07:40→08:00)
[2018-02-12] MEDS ORDERED: ACETAMINOPHEN 325 MG TABLET (FP) PO PRN (08:00)
--- NOTE | 2018-02-12 08:42 | HP ---
History & Physical Update - History History: No Change - Physical Physical: No Change - Assessment Assessment: No Change - Plan Plan: No Change (H and P from Dr. Isha Keith reviewed from 02/05/18 , no changes)
[2018-02-12] MEDS ORDERED: KETOROLAC TROMETHAMINE 30 MG/1 ML VIAL ONE (08:46)
[2018-02-12] MEDS ORDERED: MIDAZOLAM HCL 2 MG/2 ML SINGLE DOSE VIAL ONE (08:47)
[2018-02-12] MEDS ORDERED: LIDOCAINE HCL 2% JELLY (5 ML/TUBE) TP ONE (08:53)
[2018-02-12] MEDS ORDERED: POVIDONE-IODINE 5% OPHTHALMIC PREP 30 ML SOLUTION OD ONE (08:55)
[2018-02-12] MEDS ORDERED: BSS (NA/CA/MG/K) BALANCED SALT SOLUTION OPHTH SOLN 15 ML BOTTLE OD ONE (09:02)
[2018-02-12] MEDS ORDERED: CHONDROITIN SU A/HYALUR SOD 1 KIT IO ONE (09:02)
[2018-02-12] MEDS ORDERED: LIDOCAINE HCL 1% PRESERVATIVE FREE - 30ML VIAL IO ONE (09:02)
[2018-02-12] MEDS ORDERED: EPINEPHrine/PF 1 MG/1 ML (1:1,000) AMPULE SQ ONE (09:12)
[2018-02-12] MEDS ORDERED: TOBRAMYCIN/DEXAMETHASONE OPHTH. OINTMENT 1 TUBE TP ONE (09:30)
--- NOTE | 2018-02-12 09:37 | OP ---
Ophthalmology Operative Note Pre-Operative Diagnosis: Cataract Affected Eye: Right Operation: Phacoemulsification and cataract extraction with PCIOL Findings: NS Cataract Post-Operative Diagnosis: Same as Pre-op Setup Technician: Sagrario Anesthesiologist: Tomy Miller Anesthesia: Topical Specimens Removed: none Estimated blood loss: < 1cc Drains & Tubes with Location: none Operative Report Dictated: Yes
--- NOTE | 2018-02-12 12:54 | OP ---
DATE OF OPERATION: 02/12/2018 PREOPERATIVE DIAGNOSIS: Nuclear sclerotic cataract, right eye. POSTOPERATIVE DIAGNOSIS: Nuclear sclerotic cataract, right eye. PROCEDURE: Phacoemulsification and cataract extraction with insertion of posterior chamber intraocular lens, right eye. SURGEON: Ladonna Durán MD MANAGER SOLUTION: None. ANESTHESIA: Topical. ANESTHESIOLOGIST: Tomy Miller MD OPERATIVE PROCEDURE: The patient received 2% lidocaine gel and was then gently sedated and prepped and draped in the usual sterile fashion so as to expose only the right eye. Ophthalmic Betadine was instilled into the inferior fornix, and the lashes were taped out of the surgical field. An eyelid speculum was placed into the right eye. A paracentesis was made in superior clear cornea at the limbus. Nonpreserved lidocaine 1%, 0.5 mL, was injected into the anterior chamber. Viscoelastic material was instilled into the anterior chamber via the paracentesis. A 2.4-mm keratome was then used to create the main incision in temporal clear cornea at the limbus. A continuous curvilinear capsulorrhexis was performed using a cystotome and Utrata forceps. Hydrodissection of the lens cortex was performed using BSS on a cannula until the nucleus was noted to be freely rotating. The phacoemulsification tip was then inserted via the main wound and used to sculpt 2 perpendicular grooves into the lens nucleus. The nucleus was cracked into 4 quadrants. Each quadrant was lifted out of the capsule into the iris plane and individually phacoemulcified. The remaining cortical material was then aspirated using the irrigation and aspiration port. The capsular bag was inflated using Provisc. A preloaded AcrySof lens, model [id number], power +19.0 diopters was injected into the capsular bag and centered using a Sinskey hook. The residual viscoelastic material was removed from the anterior chamber using irrigation and aspiration. The wound edges were hydrated with BSS. The wound was tested for leakage. It was found to be watertight. 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 TobraDex ointment was placed into the eye, and the speculum was removed from the eye, and the eyelid was closed. Sterile dressing and shield were placed over the eye, and the patient was transferred to the recovery room in stable condition, told to follow up in 1 day. Ishmael [id number]
[2018-02-12 15:57] VITALS: BP 111/63; PULSE 77; TEMP 98
== END 2018-02-12 10:50 | disposition home or self-care (01) ==
LOC: JASU-SURG 07:00
PROVIDERS: ATTEND Ophthalmology
PROC: 08RJ3JZ Replacement of Right Lens with Synthetic Substitute, Percutaneous Approach (ICD-10-PCS; principal; 2018-02-12 08:30)
DX: H25.11 Age-related nuclear cataract, right eye (principal)

== ENCOUNTER 2018-02-26 07:00 | Day surgery (SDC) | payer OTHER, MEDICARE ==
--- NOTE | 2018-02-24 18:00 | HP ---
- Patient Scheduled date of Surgery: 02/26/18 Scheduled Surgical Procedure: Phacoemulsification and cataract extraction with PCIOL Affected Eye: Left Chief Complaint (Indication for surgery): Decreased vision affecting ADLs - Ocular History Other Eye History: Other (alex) Eye Medications: besivance tid os Previous Eye Surgery: s/p ce/pciol os - Medical History Illnesses: Hypertension, Hypercholesterolemia, Thyroid Disease Current Medications: Ambulatory Orders Atorvastatin Ca [Lipitor] 10 mg PO ASDIR 09/27/13 Liothyronine Sodium [Cytomel] 5 mcg PO DAILY 09/27/13 Metoprolol Succinate [Toprol Xl] 25 mg PO DAILY 09/27/13 Omeprazole [Prilosec] 20 mg PO DAILY 09/27/13 Levothyroxine [Synthroid -] 112 mcg PO DAILY #30 tablet 01/21/17 Ascorbic Acid [Vitamin C] 1,000 mg PO DAILY 02/10/18 Calcium Carb/D3/Magnesium/Zinc [Lev Mag Zinc + D Tablet] 1 each PO DAILY Cholecalciferol (Vitamin D3) [Vitamin D3 -] 2,000 unit PO DAILY 02/10/18 Folic Acid 1 mg PO DAILY 02/10/18 Glucosamine Sulfate Dipot Chlr [Glucosamine] 1,500 mg PO DAILY 02/10/18 Iron 65 mg PO DAILY 02/10/18 Lutein 2 mg PO DAILY 02/10/18 Mv-Min/FA/Vit K/Lycop/Lut/Zeax [Ocuvite Eye + Multi Tablet] 1 each PO DAILY 06/25 Ubidecarenone/Vit E Acet [Co Q-10 100 mg Softgel] 1 each PO DAILY 02/10/18 Vitamin B Complex/Folic Acid [Vitamin B-100 Complex Tablet] 0.4 mg PO DAILY 06/25 Allergies/Adverse Reactions: Allergies Allergy/AdvReac Type Severity Reaction Status Date / Time No Known Allergies Allergy Verified 02/12/18 07:54 Ocular Examination - Best Corrected Visual Acuity Distance: Right eye: 20/25- Distance: Left eye: 20/40 - External/Slit Lamp Examination Abnormalities: papilloma lll, decreased tear break up time, loss of pupillary ruff - Intraocular Pressure Intraocular Pressure - Right eye: 12 Intraocular Pressure-Left eye: 12 - Lens Lens: 2+ NS 2+ cortical - Vitreous/Retina Vitreous/Retina: C:D 0.2 m/v/p wnl - Special Examination M - Right eye: -2.25 -0.50 x 075 M - Left eye: -2.00 K - Right eye: 45.25/47.25 x 005 K - Left eye: 46.25/47.25 x 095 AL - Right eye: 23.86 AL - Left eye: 23.56 IOL bag: + 19.0 AUooto IOL sulcus: +18.0 MN60 AC IOL AC: +16.0 MTA4uo - Impression Impression: Cataract Left Eye - Plan Plan: Phacoemulsification and cataract extraction - IOL Left eye Post-hospital care will be provided in office on: 02/27/18
[2018-02-25 13:07] VITALS: BMI 21.1
[~2018-02-26 07:00] MED LIST changes: +ACETAMINOPHEN 325 MG TABLET (FP) PO PRN; -CIPROFLOXACIN HCL 0.3% OPHTH 2.5ML BOTTLE OP SCH; -KETOROLAC TROMETHAMINE 0.5% EYE DROP 1 DROP DROPS OP SCH; -PHENYLEPHRINE 2.5% OPHTH SOLN 15 ML BOTTLE OP SCH; -TROPICAMIDE 1% OPHTH SOLN 15 ML BOTTLE OP SCH
[2018-02-26] MEDS ORDERED: CHONDROITIN SU A/HYALUR SOD 1 KIT ONE (07:11)
--- NOTE | 2018-02-26 07:19 | HP ---
History & Physical Update - History History: No Change - Physical Physical: No Change - Assessment Assessment: No Change - Plan Plan: No Change (No change from Dr. Keith's H and P from 02/05/18)
[2018-02-26] MEDS ORDERED: TOBRAMYCIN/DEXAMETHASONE OPHTH. OINTMENT 1 TUBE ONE (07:22)
[2018-02-26] MEDS ORDERED: LIDOCAINE HCL/PF 1% SDV 5ML VIAL ONE (07:22)
[2018-02-26] MEDS ORDERED: LIDOCAINE HCL 2% 100 MG/5 ML DISP.SYRIN ONE (07:22)
[2018-02-26] MEDS ORDERED: BSS (NA/CA/MG/K) BALANCED SALT SOLUTION OPHTH SOLN 15 ML BOTTLE ONE (07:23)
[2018-02-26] MEDS ORDERED: CIPROFLOXACIN HCL 0.3% OPHTH 2.5ML BOTTLE ONE (07:23)
[2018-02-26] MEDS ORDERED: PHENYLEPHRINE 2.5% OPHTH SOLN 15 ML BOTTLE ONE (07:24)
[2018-02-26] MEDS ORDERED: KETOROLAC TROMETHAMINE 0.5% EYE DROP 1 DROP DROPS ONE (07:24)
[2018-02-26] MEDS ORDERED: TROPICAMIDE 1% OPHTH SOLN 15 ML BOTTLE ONE (07:24)
[2018-02-26 07:38] VITALS: TEMP 97.3
[2018-02-26] MEDS: CIPROFLOXACIN HCL 0.3% OPHTH 2.5ML BOTTLE OP SCH ×2 (07:48→08:05)
[2018-02-26] MEDS: PHENYLEPHRINE 2.5% OPHTH SOLN 15 ML BOTTLE OP SCH ×2 (07:49→08:05)
[2018-02-26] MEDS: TROPICAMIDE 1% OPHTH SOLN 15 ML BOTTLE OP SCH ×2 (07:49→08:06)
[2018-02-26] MEDS: KETOROLAC TROMETHAMINE 0.5% EYE DROP 1 DROP DROPS OP SCH ×2 (07:49→08:05)
[2018-02-26] MEDS ORDERED: MIDAZOLAM HCL 2 MG/2 ML SINGLE DOSE VIAL ONE (08:38)
[2018-02-26] MEDS ORDERED: TETRACAINE 0.5% OPHTH SOLN 2 ML BOTTLE OS ONE (08:57)
[2018-02-26] MEDS ORDERED: POVIDONE-IODINE 5% OPHTHALMIC PREP 30 ML SOLUTION OS ONE (08:59)
[2018-02-26] MEDS ORDERED: CHONDROITIN SU A/HYALUR SOD 1 KIT IO ONE (09:07)
[2018-02-26] MEDS ORDERED: BSS (NA/CA/MG/K) BALANCED SALT SOLUTION OPHTH SOLN 15 ML BOTTLE OS ONE (09:07)
[2018-02-26] MEDS ORDERED: LIDOCAINE HCL 1% PRESERVATIVE FREE - 30ML VIAL IO ONE (09:07)
[2018-02-26] MEDS ORDERED: EPINEPHrine/PF 1 MG/1 ML (1:1,000) AMPULE SQ ONE (09:13)
[2018-02-26] MEDS ORDERED: TOBRAMYCIN/DEXAMETHASONE OPHTH. OINTMENT 1 TUBE TP ONE (09:34)
--- NOTE | 2018-02-26 09:38 | OP ---
Ophthalmology Operative Note Pre-Operative Diagnosis: Cataract Affected Eye: Left Operation: Phacoemulsification and cataract extraction with PCIOL Findings: NS cataract left eye Post-Operative Diagnosis: Same as Pre-op Dumpster Operator: None Anesthesiologist: Jermain Lopez Anesthesia: Topical Specimens Removed: none Estimated blood loss: <1 cc Drains & Tubes with Location: none Operative Report Dictated: Yes
--- NOTE | 2018-02-26 10:11 | OP ---
DATE OF OPERATION: 02/26/2018 PREOPERATIVE DIAGNOSIS: Nuclear sclerotic cataract, left eye. POSTOPERATIVE DIAGNOSIS: Nuclear sclerotic cataract, left eye. PROCEDURE: Phacoemulsification and cataract extraction with insertion of posterior chamber intraocular lens, left eye. SURGEON: Franki Durán MD DIVISION ORDER ANALYST: None. ANESTHESIA: Topical. ANESTHESIOLOGIST: Jermain Lopez MD OPERATIVE PROCEDURE: The patient received tetracaine eye drops and was then gently sedated and prepped and draped in the usual sterile fashion so as to expose only the left eye. Ophthalmic Betadine was instilled into the inferior fornix, and the lashes were taped out of the surgical field. An eyelid speculum was placed into the left eye. Paracentesis was made in inferior temporal clear cornea at the limbus. Next, 0.5 mL of nonpreserved lidocaine 1% was injected into the anterior chamber. Viscoelastic material was instilled into the anterior chamber via the paracentesis. A 2.4-mm keratome was then used to create the main incision in temporal clear cornea at the limbus. A continuous curvilinear capsulorrhexis was performed using a cystotome and Utrata forceps. Hydrodissection of the lens cortex was performed using BSS on a cannula until the nucleus was noted to be freely rotating. The phacoemulsification tip was inserted via the main wound and used to sculpt 2 perpendicular grooves into the lens nucleus. The nucleus was cracked into 4 quadrants. Each quadrant was lifted out of the capsule into the iris plane and individually phacoemulsified. The remaining cortical material was then aspirated using the irrigation and aspiration port. The capsular bag was inflated using Provisc, and a preloaded AcrySof lens model [id number], power +19.0 diopters was injected into the capsular bag and centered using a Sinskey hook. The residual viscoelastic material was removed from the anterior chamber using irrigation and aspiration. The wound edges were hydrated using BSS. The wound was tested for leakage. It was found to be watertight. Therefore, TobraDex ointment was placed in the eye, and the speculum was removed from the eye. A sterile dressing and shield were placed over the eye, and the patient was transferred to the recovery room in stable condition, told to follow up in 1 day. FRANKI DURÁN M.D. [id number]
[2018-02-26 11:54] VITALS: BP 112/68; PULSE 77
[2018-02-26] MEDS ORDERED: ACETAMINOPHEN 325 MG TABLET (FP) PO PRN (13:01)
[2018-02-26] MEDS ORDERED: ONDANSETRON 4 MG/2 ML VIAL IVPUSH PRN (13:01)
[2018-02-26] MEDS ORDERED: LACTATED RINGERS SOLUTION 1,000 ML IV SCH (13:15)
== END 2018-02-26 10:50 | disposition home or self-care (01) ==
LOC: JASU-SURG 07:00
PROVIDERS: ATTEND Ophthalmology
PROC: 08RK3JZ Replacement of Left Lens with Synthetic Substitute, Percutaneous Approach (ICD-10-PCS; principal; 2018-02-26 08:30)
DX: H25.10 Age-related nuclear cataract, unspecified eye (principal)

== ENCOUNTER 2020-03-29 10:44 | Emergency (ER) | payer OTHER, MEDICARE | END 2020-03-29 12:02 | disposition home or self-care (01) | LOC: JVIRT 10:44 | DX: Z20.822 Contact with and (suspected) exposure to COVID-19 (principal) | CPT/HCPCS: C9803; G2012-GT; U0003 ==